=== PATIENT | male | born 1960 | race Caucasian/White ===

== ENCOUNTER 2018-05-30 22:09 | Emergency (ER) | payer OTHER ==
[~2018-05-30] VITALS: Ht 175.3 cm; Wt 70.0 kg
[2018-05-30 22:50] VITALS: BP 141/96
== END 2018-05-30 23:19 ==
LOC: ER 22:10
DX: F10.129 Alcohol abuse with intoxication, unspecified (principal); Z04.1 Encounter for examination and observation following transport accident; Y90.9 Presence of alcohol in blood, level not specified; V43.32XA Unspecified car occupant injured in collision with other type car in nontraffic accident, initial encounter; Y93.89 Activity, other specified; Y92.481 Parking lot as the place of occurrence of the external cause; Y99.8 Other external cause status
CPT/HCPCS: 99283

== ENCOUNTER 2021-10-18 16:26 | Inpatient (IN) | payer MEDICARE, MEDICAID ==
[~2021-10-18] VITALS: Ht 175.3 cm; Wt 68.2 kg
[2021-10-18] MEDS ORDERED: LIDOcaine 1% W/epiNEPHrine 1:200,000 10ml vial IJ ONE ×2 (20:15→20:30)
--- NOTE | 2021-10-18 20:57 | NUR ---
RN irrigated L posterior elbow laceration with 500cc of normal saline per Dr. Blankenship order.
[2021-10-18] MEDS ORDERED: temazepam 15mg capsule PO PRN (21:00)
[2021-10-18] MEDS ORDERED: vancomycin/NS 1 GM ADD-VANTAGE 250 ML IV ONE (21:25)
[2021-10-18] MEDS ORDERED: cefTRIAXone 1g/NS 100ml IVPB 100 ML IV ONE (21:25)
[2021-10-18] MEDS ORDERED: magnesium 2GM in 50ml NS 50 ML IV PRN (21:45)
[2021-10-18] MEDS ORDERED: mag hydrox/Alum hydrox/simeth 30ml oral suspension PO PRN (21:45)
[2021-10-18] MEDS ORDERED: POTASSIUM BICARB 20meq eff tab 20 MEQ TABLET.EFF PO PRN ×2 (21:45)
[2021-10-18] MEDS ORDERED: HYDROcodone/acetaminophen 5mg/325mg tablet PO PRN (21:45)
[2021-10-18] MEDS ORDERED: HYDROcodone/acetaminophen 10/325mg tab PO PRN (21:45)
[2021-10-18] MEDS ORDERED: morphine 2 MG/ML inj. syringe IV PRN ×2 (21:45)
[2021-10-18] MEDS ORDERED: magnesium 4gm in 100ml NS 100 ML IV PRN (21:45)
[2021-10-18] MEDS ORDERED: magnesium Cl slow-release 64mg tablet PO PRN (21:45)
[2021-10-18] MEDS ORDERED: acetaminophen 325mg tablet PO PRN ×2 (21:45)
[2021-10-18] MEDS ORDERED: magnesium hydroxide 30ml (MOM) UD suspension PO PRN (21:45)
[2021-10-18] MEDS ORDERED: potassium CL 10mEq/100ml bag 100 ML IV PRN (21:45)
[2021-10-18] MEDS ORDERED: ondansetron/PF 4mg/2ml inj IV PRN (21:45)
[2021-10-18 22:20] LABS: BASOPHILS % (AUTO) 0.4 % (0-1); EOSINOPHILS % (AUTO) 0.3 % (0-6); HEMATOCRIT 38.1 % (42.0-52.0); HEMOGLOBIN 13.5 g/dl (14.0-17.9); LYMPHOCYTES # (AUTO) 1.1 X10'3 (1.1-4.8); LYMPHOCYTES % (AUTO) 11.7 % (21-51); MEAN CORPUSCULAR HEMOGLOBIN 35.6 PG (27.0-31.0); MEAN CORPUSCULAR HGB CONC 35.4 g/dL (33.0-36.5); MEAN CORPUSCULAR VOLUME 100.4 FL (78-98); MEAN PLATELET VOLUME 6.7 FL (7.4-10.4); MONOCYTES # (AUTO) 0.9 X10'3 (0-0.9); MONOCYTES % (AUTO) 9.4 % (2-12); NEUTROPHILS # (AUTO) 7.1 X10'3 (1.8-7.7); NEUTROPHILS % (AUTO) 78.2 % (42-75); PLATELET COUNT 232 X10'3 (140-440); RED CELL DISTRIBUTION WIDTH 12.9 % (11.5-14.5); WHITE BLOOD COUNT 9.1 X10'3 (4.5-11.0)
[2021-10-18 22:34] LABS: ANION GAP 11 (8-16); BLOOD UREA NITROGEN 6 MG/DL (7-18); BUN/CREATININE RATIO 6.7 (5.4-32.0); CHLORIDE 94 MMOL/L (99-107); GLUCOSE 121 MG/DL (70-104); POTASSIUM 3.5 MMOL/L (3.5-5.1); SODIUM 128 MMOL/L (135-145); TOTAL CARBON DIOXIDE 23.3 MMOL/L (24-32); TOTAL PROTEIN 7.5 G/DL (6.4-8.2); eGFR 85 ML/MIN
[2021-10-18 22:35] LABS: ALANINE AMINOTRANSFERASE 53 U/L (12-78); ALBUMIN/GLOBULIN RATIO 0.7 (1.1-1.5); ALKALINE PHOSPHATASE 106 IU/L (46-116); ASPARTATE AMINO TRANSFERASE 48 U/L (10-37)
--- NOTE | 2021-10-18 23:56 | NUR ---
Pressure wounds noted to bilateral butt cheeks, RN printed picture of wound and attached to skin assessment. Dr. Toro signed skin assessment form.
[2021-10-18] MEDS: normal saline 1000ml 1,000 ML IV SCH (23:58)
--- NOTE | 2021-10-19 00:09 | NUR ---
Report called to Shiela Orozco RN on ortho floor.
[2021-10-19 00:29] LABS: URINE AMPHETAMINE SCREEN NEGATIVE (Neg); URINE BARBITUATE SCREEN NEGATIVE (Neg); URINE BENZODIAZEPINES SCREEN NEGATIVE (Neg); URINE CANNABINOID SCREEN NEGATIVE (Neg); URINE COCAINE SCREEN NEGATIVE (Neg); URINE METHADONE SCREEN NEGATIVE (Neg); URINE OPIATE SCREEN NEGATIVE (Neg); URINE PHENCYCLIDINE SCREEN NEGATIVE (Neg)
[2021-10-19 01:10] VITALS: BP 130/90
[2021-10-19] MEDS ORDERED: NO HOME MEDS (01:19)
--- NOTE | 2021-10-19 06:07 | NUR ---
Problems reprioritized. Patient report given, questions answered & plan of care reviewed with LLOYD Rogers.
[2021-10-19 06:23] LABS: BASOPHILS % (AUTO) 0.5 % (0-1); EOSINOPHILS % (AUTO) 0.7 % (0-6); HEMATOCRIT 34.5 % (42.0-52.0); HEMOGLOBIN 12.1 g/dl (14.0-17.9); LYMPHOCYTES # (AUTO) 0.9 X10'3 (1.1-4.8); MEAN CORPUSCULAR HEMOGLOBIN 36.4 PG (27.0-31.0); MEAN CORPUSCULAR VOLUME 104.1 FL (78-98); MEAN PLATELET VOLUME 6.9 FL (7.4-10.4); MONOCYTES # (AUTO) 0.5 X10'3 (0-0.9); MONOCYTES % (AUTO) 7.7 % (2-12); NEUTROPHILS # (AUTO) 5.3 X10'3 (1.8-7.7); NEUTROPHILS % (AUTO) 78.1 % (42-75); PLATELET COUNT 208 X10'3 (140-440); RED BLOOD COUNT 3.31 X10'6 (4.70-6.10); RED CELL DISTRIBUTION WIDTH 12.9 % (11.5-14.5); WHITE BLOOD COUNT 6.7 X10'3 (4.5-11.0)
[2021-10-19 06:35] LABS: ALANINE AMINOTRANSFERASE 41 U/L (12-78); ALBUMIN 2.5 G/DL (3.4-5.0); ALBUMIN/GLOBULIN RATIO 0.7 (1.1-1.5); ALKALINE PHOSPHATASE 92 IU/L (46-116); ANION GAP 3 (8-16); ASPARTATE AMINO TRANSFERASE 34 U/L (10-37); BILIRUBIN,TOTAL 0.6 MG/DL (0.1-1.0); BLOOD UREA NITROGEN 5 MG/DL (7-18); BUN/CREATININE RATIO 5.7 (5.4-32.0); CALCIUM 8.3 MG/DL (8.5-10.1); CHLORIDE 101 MMOL/L (99-107); CREATININE 0.87 MG/DL (0.60-1.10); GLUCOSE 96 MG/DL (70-104); POTASSIUM 3.5 MMOL/L (3.5-5.1); SODIUM 130 MMOL/L (135-145); TOTAL CARBON DIOXIDE 25.7 MMOL/L (24-32); TOTAL PROTEIN 6.2 G/DL (6.4-8.2); eGFR 89 ML/MIN
--- NOTE | 2021-10-19 06:52 | NUR ---
Patient in room ORTHO 4009. I have received report from Shiela DESAI and had the opportunity to ask questions and assume patient care.
[2021-10-19 07:00] VITALS: BP 127/88
[2021-10-19] MEDS: K and/or MAG REPLACEMENT MC SCH ×2 (08:00→20:00)
[2021-10-19] MEDS ORDERED: doxycycline inj 100 MG in normal saline 100ml IV soln 100 ML IV SCH (08:00)
[2021-10-19] MEDS: heparin, porcine 5000 units/ml vial SQ SCH ×2 (08:00→20:45)
[2021-10-19 10:00] VITALS: BP 126/89
[2021-10-19] MEDS: clindamycin 600mg/D5W 50ml 50 ML IV SCH ×2 (12:21→21:03)
[2021-10-19] MEDS: normal saline 1000ml 1,000 ML IV SCH ×2 (12:28→17:45)
--- NOTE | 2021-10-19 17:51 | NUR ---
patient seen by Dr osman and Dr marie. patient is not for surgical intervention see Note. Dressing changed to left elbow and splint in place. will continue to monitor
[2021-10-19 18:00] VITALS: BP 126/83
--- NOTE | 2021-10-19 18:00 | NUR ---
Patient in room ORTHO 4009. I have received report from LLOYD Rogers and had the opportunity to ask questions and assume patient care.
--- NOTE | 2021-10-19 18:23 | NUR ---
Problems reprioritized. Patient report given, questions answered & plan of care reviewed with Shiela DESAI.
--- NOTE | 2021-10-19 18:45 | NUR ---
Problems reprioritized. Patient report given, questions answered & plan of care reviewed with LLOYD Estrada.
[2021-10-19 22:00] VITALS: BP 127/89
[2021-10-20] MEDS: clindamycin 600mg/D5W 50ml 50 ML IV SCH ×3 (05:52→14:00)
[2021-10-20 06:00] VITALS: BP 138/92
[2021-10-20 06:08] LABS: BASOPHILS # (AUTO) 0.1 X10'3 (0-0.2); BASOPHILS % (AUTO) 1.3 % (0-1); EOSINOPHILS # (AUTO) 0.1 X10'3 (0-0.9); EOSINOPHILS % (AUTO) 1.8 % (0-6); HEMATOCRIT 34.5 % (42.0-52.0); LYMPHOCYTES # (AUTO) 1.4 X10'3 (1.1-4.8); LYMPHOCYTES % (AUTO) 24.6 % (21-51); MEAN CORPUSCULAR HEMOGLOBIN 36.4 PG (27.0-31.0); MEAN CORPUSCULAR HGB CONC 34.9 g/dL (33.0-36.5); MEAN CORPUSCULAR VOLUME 104.3 FL (78-98); MEAN PLATELET VOLUME 7.2 FL (7.4-10.4); MONOCYTES # (AUTO) 0.6 X10'3 (0-0.9); MONOCYTES % (AUTO) 10.5 % (2-12); NEUTROPHILS # (AUTO) 3.5 X10'3 (1.8-7.7); NEUTROPHILS % (AUTO) 61.8 % (42-75); PLATELET COUNT 187 X10'3 (140-440); WHITE BLOOD COUNT 5.7 X10'3 (4.5-11.0)
--- NOTE | 2021-10-20 06:18 | NUR ---
PATIENT ACCIDENTALLY PULLED OUT HIS PIV WHILE SLEEPING, WAS ABLE TO RESTART THIS MORNING BUT 0200 CLINDAMYCIN WAS MISSED. SPOKE TO RX, TOLD TO HANG THE 0200 DOSE NOW (0500), SKIP THE 0800 DOSE AND GET BACK ON SCHEDULE WITH THE 1400 DOSE. REPORTED THIS TO TRISTIAN WITH SHIFT REPORT.
[2021-10-20 06:19] LABS: ALANINE AMINOTRANSFERASE 34 U/L (12-78); ALBUMIN 2.2 G/DL (3.4-5.0); ALBUMIN/GLOBULIN RATIO 0.6 (1.1-1.5); ALKALINE PHOSPHATASE 75 IU/L (46-116); ANION GAP 10 (8-16); ASPARTATE AMINO TRANSFERASE 27 U/L (10-37); BILIRUBIN,TOTAL 0.6 MG/DL (0.1-1.0); BLOOD UREA NITROGEN 7 MG/DL (7-18); BUN/CREATININE RATIO 7.8 (5.4-32.0); CALCIUM 8.1 MG/DL (8.5-10.1); CHLORIDE 105 MMOL/L (99-107); GLUCOSE 94 MG/DL (70-104); POTASSIUM 3.6 MMOL/L (3.5-5.1); SODIUM 136 MMOL/L (135-145); TOTAL CARBON DIOXIDE 21.5 MMOL/L (24-32); TOTAL PROTEIN 5.9 G/DL (6.4-8.2); eGFR 85 ML/MIN
[2021-10-20] MEDS: K and/or MAG REPLACEMENT MC SCH (08:00)
[2021-10-20] MEDS: heparin, porcine 5000 units/ml vial SQ SCH (09:58)
[2021-10-20] MEDS: normal saline 1000ml 1,000 ML IV SCH ×2 (09:58→13:46)
[2021-10-20 10:00] VITALS: BP 98/60
[2021-10-20] MEDS ORDERED: TRAM50TA2 PO (11:34)
[2021-10-20] MEDS ORDERED: DOXY100C2 PO (11:34)
[2021-10-20] MEDS ORDERED: CEPH-585 PO (11:34)
--- NOTE | 2021-10-20 13:31 | NUR ---
PAGER ID: [phone] MESSAGE: Nolan Hoffman [phone] Ok to send someone to p/u those printed scripts?? [phone]
--- NOTE | 2021-10-20 14:52 | NUR ---
DISCHARGE NOTE: Reviewed discharge paperwork with pt. He is aware he has printed scripts on him for tramadol, and antibiotics and that he needs to go to the pharmacy to fill these prescriptions. Pt. knows not to drive on tramadol. Pt. knows he will have HH nursing and needs to f/u with our wound care clinic on Thursday. Wound care discharge pictures taken. PIV DC'd, cannula intact, no s/sx bleeding noted, pressure bandage applied. All wounds cleaned and re-dressed. Written education given to pt. on fall prevention in the home and wound care. Pt. had opportunities to ask questions but had none. Signed DC paperwork, placed in chart. Pt. left with his belongings and his friend picked him up to go home.
== END 2021-10-20 14:00 | disposition home health service (06) | DRG 603 ==
LOC: ER 16:26 → ED HOLD 21:46 → ORTHO 4S 10-19 00:20
PROVIDERS: ADMIT Internal Medicine; ATTEND Family Medicine
PROC: 2W3DX1Z Immobilization of Left Lower Arm using Splint (ICD-10-PCS; principal; 2021-10-18)
PROC: 3E10X8Z Irrigation of Skin and Mucous Membranes using Irrigating Substance (ICD-10-PCS; 2021-10-18)
DX: L03.114 Cellulitis of left upper limb (principal); E87.1 Hypo-osmolality and hyponatremia; L03.113 Cellulitis of right upper limb; S51.012A Laceration without foreign body of left elbow, initial encounter; J44.9 Chronic obstructive pulmonary disease, unspecified; F10.20 Alcohol dependence, uncomplicated; Y90.9 Presence of alcohol in blood, level not specified; F17.210 Nicotine dependence, cigarettes, uncomplicated; Z96.641 Presence of right artificial hip joint; W18.2XXA Fall in (into) shower or empty bathtub, initial encounter; Y93.E1 Activity, personal bathing and showering; Y92.091 Bathroom in other non-institutional residence as the place of occurrence of the external cause; Y99.8 Other external cause status; Z88.5 Allergy status to narcotic agent; Z85.048 Personal history of other malignant neoplasm of rectum, rectosigmoid junction, and anus; Z71.6 Tobacco abuse counseling
CPT/HCPCS: 36415; 73080; 80053; 80305; 83605; 85025; 87040; 87070; 87077; 87081; 87186; 97116; 97161; 99285; G0378; J0696; J1644; J3370; J3490; J7030

== ENCOUNTER 2022-01-04 08:12 | Emergency (ER) | payer OTHER, MEDICARE, MEDICAID ==
[~2022-01-04] VITALS: Ht 175.3 cm; Wt 7.0 kg
[~2022-01-04 08:12] MED LIST: CEPH-585 PO
[2022-01-04 11:58] LABS: BASOPHILS % (AUTO) 0.8 % (0-1); EOSINOPHILS # (AUTO) 0.1 X10'3 (0-0.9); EOSINOPHILS % (AUTO) 1.2 % (0-6); HEMOGLOBIN 13.7 g/dl (14.0-17.9); LYMPHOCYTES # (AUTO) 1.2 X10'3 (1.1-4.8); LYMPHOCYTES % (AUTO) 22.1 % (21-51); MEAN CORPUSCULAR HEMOGLOBIN 37.2 PG (27.0-31.0); MEAN CORPUSCULAR HGB CONC 35.2 g/dL (33.0-36.5); MEAN CORPUSCULAR VOLUME 105.8 FL (78-98); MEAN PLATELET VOLUME 6.5 FL (7.4-10.4); MONOCYTES # (AUTO) 0.6 X10'3 (0-0.9); MONOCYTES % (AUTO) 10.3 % (2-12); NEUTROPHILS # (AUTO) 3.5 X10'3 (1.8-7.7); NEUTROPHILS % (AUTO) 65.6 % (42-75); PLATELET COUNT 178 X10'3 (140-440); RED BLOOD COUNT 3.68 X10'6 (4.70-6.10); RED CELL DISTRIBUTION WIDTH 14.1 % (11.5-14.5); WHITE BLOOD COUNT 5.4 X10'3 (4.5-11.0)
[2022-01-04 12:05] LABS: ALANINE AMINOTRANSFERASE 42 U/L (12-78); ALBUMIN 3.3 G/DL (3.4-5.0); ALBUMIN/GLOBULIN RATIO 0.6 (1.1-1.5); ALKALINE PHOSPHATASE 141 IU/L (46-116); ANION GAP 13 (8-16); ASPARTATE AMINO TRANSFERASE 68 U/L (10-37); BILIRUBIN,TOTAL 0.4 MG/DL (0.1-1.0); BLOOD UREA NITROGEN 5 MG/DL (7-18); BUN/CREATININE RATIO 5.4 (5.4-32.0); CALCIUM 8.4 MG/DL (8.5-10.1); CHLORIDE 97 MMOL/L (99-107); CREATININE 0.93 MG/DL (0.60-1.10); ETHANOL 0.227 GM/DL (0.0-0.010); POTASSIUM 4.2 MMOL/L (3.5-5.1); SODIUM 131 MMOL/L (135-145); TOTAL CARBON DIOXIDE 21.3 MMOL/L (24-32); TOTAL PROTEIN 8.5 G/DL (6.4-8.2); eGFR 82 ML/MIN
[2022-01-04 12:06] LABS: GLUCOSE 85 MG/DL (70-104)
[2022-01-04 12:07] LABS: AMMONIA < 10 UMOL/L (11-32)
[2022-01-04 12:08] LABS: LACTIC SEPSIS 2.5 MMOL/L (0.4-2.0)
[2022-01-04 12:22] LABS: CLARITY,URINE SLIGHTLY CLOUDY (Clear); COLOR,URINE YELLOW (Yellow); GLUCOSE, URINE NEGATIVE (Neg); KETONES,URINE NEGATIVE (Neg); LEUKOCYTE ESTERASE ,URINE LARGE (Neg); NITRITES, URINE POSITIVE (Neg); OCCULT BLOOD,URINE TRACE-INTACT (Neg); PH,URINE 5.5 (4.8-8.0); PROTEIN,URINE NEGATIVE (Neg); UROBILINOGEN,URINE 0.2 E.U/dL (0.2-1.0)
[2022-01-04 12:26] LABS: UA COLLECTION TYPE CLN CATCH MIDSTREAM
[2022-01-04 12:27] LABS: BACTERIA,URINE 4+ /HPF (Neg); MUCUS STRANDS FEW /LPF (Neg); RBC,URINE 0-2 /HPF (0-2); SQUAMOUS EPITHELIAL CELL,UR NONE SEEN /LPF (FEW); WBC,URINE 50-100 /HPF (0-4)
[2022-01-04 12:30] LABS: URINE AMPHETAMINE SCREEN NEGATIVE (Neg); URINE BARBITUATE SCREEN NEGATIVE (Neg); URINE BENZODIAZEPINES SCREEN NEGATIVE (Neg); URINE CANNABINOID SCREEN NEGATIVE (Neg); URINE COCAINE SCREEN NEGATIVE (Neg); URINE METHADONE SCREEN NEGATIVE (Neg); URINE OPIATE SCREEN NEGATIVE (Neg); URINE PHENCYCLIDINE SCREEN NEGATIVE (Neg)
[2022-01-04 13:26] VITALS: BP 129/94
== END 2022-01-04 13:31 | disposition home or self-care (01) ==
LOC: ER 08:13
DX: S61.002A Unspecified open wound of left thumb without damage to nail, initial encounter (principal); D64.9 Anemia, unspecified; F10.929 Alcohol use, unspecified with intoxication, unspecified; E87.1 Hypo-osmolality and hyponatremia; W18.39XA Other fall on same level, initial encounter; Y93.89 Activity, other specified; Y92.89 Other specified places as the place of occurrence of the external cause; Y99.8 Other external cause status
CPT/HCPCS: 36415; 70450; 80053; 80305; 80320; 81001; 82140; 83605; 85025; 87040; 99284

== ENCOUNTER 2022-08-18 09:45 | Emergency (ER) | payer OTHER, MEDICAID ==
[~2022-08-18] VITALS: Ht 175.3 cm; Wt 63.6 kg
[~2022-08-18 09:45] MED LIST changes: +AMLO-708 PO; -CEPH-585 PO; +DOCU-195 PO; +FLUT1DIS15 INH; +FOLI1TAB27 PO; +MULT-1121 PO; +THIA100T70 PO
[2022-08-18] MEDS ORDERED: HYDROcodone/acetaminophen 10/325mg tab PO ONE (14:35)
[2022-08-18] MEDS ORDERED: ketorolac trometh inj. 60 MG/2 ML VIAL IM ONE (14:35)
[2022-08-18 15:56] VITALS: BP 112/91
[2022-08-18] MEDS ORDERED: TRAM50TA2 PO (16:42)
== END 2022-08-18 16:52 | disposition home or self-care (01) ==
LOC: ER 09:45
DX: M25.551 Pain in right hip (principal); W18.30XA Fall on same level, unspecified, initial encounter; Y93.89 Activity, other specified; Y92.89 Other specified places as the place of occurrence of the external cause; Y99.8 Other external cause status
CPT/HCPCS: 73502; 96372; 99283; J1885